=== PATIENT | male | born 1935 | race Caucasian/White ===

== ENCOUNTER 2018-10-04 18:12 | Inpatient (IN) | payer MEDICARE, OTHER ==
[~2018-10-04] VITALS: Ht 162.6 cm; Wt 62.8 kg
[2018-10-04] MEDS ORDERED: IPRATROPIUM NEB FS 0.5 MG/2.5 ML AMPUL.NEB ONE (18:23)
[2018-10-04] MEDS ORDERED: ALBUTEROL FS 2.5 MG/3 ML VIAL.NEB ONE (18:23)
[2018-10-04] MEDS ORDERED: CEFTRIAXONE 1GM BAG (ER ONLY) 50 ML IV ONE ×2 (18:24→18:30)
[2018-10-04] MEDS ORDERED: methylPREDNISolone SOD SUCC 125 MG/2ML VIAL ONE (18:24)
[2018-10-04] MEDS ORDERED: BENZ-13 PO (18:26)
[2018-10-04] MEDS ORDERED: ALBU2.5V38 IH (18:26)
[2018-10-04] MEDS ORDERED: FURO-145 PO (18:26)
[2018-10-04] MEDS ORDERED: MONT10TA22 PO (18:26)
[2018-10-04] MEDS ORDERED: ATOR10TA PO (18:26)
[2018-10-04] MEDS ORDERED: AMIN30LI2 PO (18:26)
[2018-10-04] MEDS ORDERED: BENZ1LOZ58 MM (18:26)
[2018-10-04] MEDS ORDERED: ASPI-1169 PO (18:26)
[2018-10-04] MEDS ORDERED: FAMO20TA8 PO (18:26)
[2018-10-04] MEDS ORDERED: DOCU-141 PO (18:26)
[2018-10-04] MEDS ORDERED: ACET-868 PO (18:26)
[2018-10-04] MEDS ORDERED: ENOX40DI9 SQ (18:26)
[2018-10-04] MEDS ORDERED: PANT40TA2 PO (18:26)
[2018-10-04] MEDS ORDERED: IPRA3AMP23 IH (18:26)
[2018-10-04 18:28] LABS: BASOPHILS # (AUTO) 0.1 /CMM (0.0-0.2); BASOPHILS % (AUTO) 0.8 % (0.0-2.0); EOSINOPHILS % (AUTO) 2.6 % (0.0-6.0); HEMATOCRIT 43 % (39-51); HEMOGLOBIN 14.5 g/dL (13.5-17.5); LYMPHOCYTES # (AUTO) 1.6 /CMM (0.8-4.8); LYMPHOCYTES % (AUTO) 24.4 % (20.0-44.0); MEAN CORPUSCULAR HGB CONC 34 g/dl (31.0-36.0); MEAN CORPUSCULAR VOLUME 90 fL (80-96); MONOCYTES # (AUTO) 0.7 /CMM (0.1-1.30); MONOCYTES % (AUTO) 10.6 % (2.0-12.0); NEUTROPHILS # (AUTO) 3.9 /CMM (1.8-8.9); NEUTROPHILS % (AUTO) 61.6 % (43.0-81.0); PLATELET COUNT (AUTO) 164 /CMM (150-450); RED BLOOD CELL COUNT(AUTO) 4.82 MIL/uL (4.5-6.0); WHITE BLOOD COUNT (AUTO) 6.4 K/uL (4.3-11.0)
[2018-10-04] MEDS ORDERED: IPRATROPIUM NEB FS 0.5 MG/2.5 ML AMPUL.NEB NEB ONE (18:30)
[2018-10-04] MEDS ORDERED: AZITHROMYCIN 500 MG in IV D5W 250 ML IV ONE (18:30)
[2018-10-04] MEDS ORDERED: methylPREDNISolone SOD SUCC 125 MG/2ML VIAL IV ONE (18:30)
[2018-10-04] MEDS ORDERED: IV NS 0.9% 1,000 ML BAG IV ONE (18:30)
[2018-10-04] MEDS ORDERED: VANCOMYCIN 1 GM in IV D5W 250 ML IV ONE (18:30)
[2018-10-04] MEDS ORDERED: ALBUTEROL FS 2.5 MG/3 ML VIAL.NEB CONTNEB ONE (18:30)
--- NOTE | 2018-10-04 18:33 | NUR ---
BIB RA 90 FROM [facility] SOB WITH WHEEZING O2 SATS R/A 70% ARRIVED WITH ALBUTEROL TREATMENT. PT AAOX3, PLACED ON BIPAP PER DR. MCGOWAN'S ORDER, PT LUCILA WELL. DENIES CP, DIZZINESS, N/V @ THIS TIME. PLACED ON DYE JIG OPERATOR. PT SEEN & EVAL'D BY DR. MCGOWAN & WILL CONT TO MONITOR.
[2018-10-04 18:40] LABS: CALCIUM, SERUM 8.6 mg/dL (8.5-10.1); CARBON DIOXIDE 34 mmol/L (21-32); CHLORIDE 99 mmol/L (98-107); CREATININE 1.1 mg/dL (0.6-1.3); GLUCOSE 112 mg/dL (74-106); POTASSIUM 3.2 mmol/L (3.5-5.1); SODIUM SERUM 139 mmol/L (136-145); UREA NITROGEN, BLOOD 17 mg/dL (7-18)
[2018-10-04 18:54] LABS: B-TYPE NATRIURETIC PEPTIDE 343 PG/ML (0-125)
[2018-10-04] MEDS ORDERED: ASPIRIN 325 MG TABLET PO ONE (19:00)
[2018-10-04] MEDS ORDERED: ASPIRIN 325 MG TABLET ONE (19:06)
--- NOTE | 2018-10-04 19:09 | NUR ---
IV VANCO STARTED, PT LUCILA WELL. INFUSING WELL, NO S/S OF SWELLING/REDNESS/INFILTRATION NOTED @ THIS TIME. RT @ BS FOR ABG.
[2018-10-04 19:14] LABS: ABG BASE EXCESS -18.1 mmol/L; ABG OXYGEN SATURATION 79.1 % (92.0-98.5); ABG PCO2 14.9 mmHg (35.0-45.0); ABG PH 7.299 (7.350-7.450); ABG PO2 48.4 mmHg (75.0-100.0); AaDO2 291.3 mmHg; COHb 0.3 % (0.5-1.5); MetHb 2.5 % (0.0-1.5); O2Hb 76.9 % (94.0-97.0); PEEP,BG 5 cm H2O; SITE, ABG Right Radial; VENT MODE, BG BIPAP
--- NOTE | 2018-10-04 19:37 | NUR ---
PT SITTING UP, EYES CLOSED BUT EASILY AWAKEN BY VERBAL STIMULI. PT STS HE'S FEELING A LOT BETTER, ON BIPAP O2 SAT 99%, NO RESP DISTRESS NOTED @ THIS TIME. PT ON TELE, NO ECTOPY NOTED. DENIES CP, DIZZINESS, N/V @ THIS TIME & WILL CONT TO MONITOR.
--- NOTE | 2018-10-04 19:58 | NUR ---
CALLED [employer] FELT HAT STEAMER WAS PAGED.
[2018-10-04] MEDS ORDERED: IV NS 0.9% 250 ML IV ONE (20:20)
[2018-10-04] MEDS ORDERED: CT SWABBABLE VALVE TRANS SET 1 EA INFUS.SET MC ONE (20:20)
[2018-10-04] MEDS ORDERED: IOHEXOL-350 100 ML VIAL IV ONE (20:20)
[2018-10-04] MEDS ORDERED: MAG HYDROX/AL HYDROX/SIMETH 30 ML UDC PO PRN (20:30)
[2018-10-04] MEDS ORDERED: Z GUARD REMEDY 2 OZ OINT TP PRN (20:30)
[2018-10-04] MEDS: ALBUTEROL FS 2.5 MG/0.5 ML VIAL.NEB NEB SCH ×2 (20:30→23:26)
[2018-10-04] MEDS ORDERED: HYDROCODONE/APAP 5/325MG 1 EACH TABLET PO PRN (20:30)
[2018-10-04] MEDS ORDERED: ZOLPIDEM TARTRATE 5 MG TABLET PO PRN (20:30)
[2018-10-04] MEDS: IPRATROPIUM NEB FS 0.5 MG/2.5 ML AMPUL.NEB NEB SCH ×2 (20:30→23:26)
[2018-10-04] MEDS ORDERED: ONDANSETRON HCL/PF 4 MG/2 ML VIAL IVP PRN (20:30)
[2018-10-04] MEDS ORDERED: MAGNESIUM HYDROXIDE 30 ML UDC PO PRN (20:30)
[2018-10-04] MEDS ORDERED: ACETAMINOPHEN 325 MG TABLET PO PRN (20:30)
--- NOTE | 2018-10-04 21:23 | NUR ---
PT BACK FROM CT VIA [facility] JUAN FOR CT ANGIO. PT STABLE NO RESP DISTRESS NOTED @ THIS TIME.
--- NOTE | 2018-10-04 21:33 | NUR ---
PT RECEIVED ON BIPAP WITH THE FOLLOWING SETTINGS OF: I/E 15/5 RATE 12 FIO2 50%, AND ABG DRAWN. PER MD MCGOWAN VERBAL ORDER INCREASE FIO2 100%. PT AWAKE, ALERT, AND TOLERATING SETTINGS. SKIN BARRIER APPLIED ACROSS BRIDGE OF NOSE. VIOLETA BROWN AWARE Addendum: 10/04/18 at 2137 by CRISTINA PAVON RT Amended: Links added.
--- NOTE | 2018-10-04 21:41 | NUR ---
RECEIVED REPORT FROM KEVIN STRATTON RN FOR CONTINUITY OF CARE. AWAITING PT ARRIVAL.
--- NOTE | 2018-10-04 21:41 | NUR ---
REPORT GIVEN TO MICHELLE RN @ ICU FOR CONT OF CARE.
[2018-10-04 22:01] LABS: ABG BASE EXCESS 1.3 mmol/L; ABG OXYGEN SATURATION 99.3 % (92.0-98.5); ABG PO2 528.8 mmHg (75.0-100.0); AaDO2 139.2 mmHg; COHb 0.2 % (0.5-1.5); MetHb 0.7 % (0.0-1.5); O2Hb 98.4 % (94.0-97.0); PEEP,BG 5 cm H2O; SITE, ABG Right Radial; VENT MODE, BG BIPAP
--- NOTE | 2018-10-04 22:05 | NUR ---
RECEIVED PT IN NO ACUTE DISTRESS IN BED. PT IS A/O X 3 AND ABLE TO MAKE NEEDS KNOWN. PT IS SCOTTISH SPEAKING ONLY WITH NEED OF SCHOOL SPEECH THERAPIST. PT HAS PURSED BREATHING UPON FIRST IMPRESSIONS. PT IS ON 15LPM VIA NON REBREATHER WITH O2 SAT @ 98%. PT TRANSFERRED TO BED FROM [facility] AND TOLERATED WELL. PT PLACED ON BIPAP BY RT AT BEDSIDE. PT TOLERATING BIPAP WELL. PT NOT C/O ANY PAIN AT THIS TIME. PT HAS RIGHT HAND 20G, LEFT HAND 20G AND RIGHT AC 20G THAT ARE CLEAN DRY INTACT AND PATENT WITH SALINE FLUSH. BED IN LOW LOCK POSITION WITH RIALS UP X 2. ALL SAFETY MEASURES ENSURED AND CARRIED OUT. WILL CONTINUE TO MONITOR PT.
[2018-10-04 22:16] VITALS: BP 132/82
[2018-10-04] MEDS ORDERED: POTASSIUM CHLORIDE 20 MEQ TAB.PRT.SR PO ONE (22:30)
[2018-10-04] MEDS: MONTELUKAST SODIUM (10MG) 10 MG TABLET PO SCH (22:31)
[2018-10-04] MEDS: ATORVASTATIN 10 MG TABLET PO SCH (22:31)
[2018-10-04] MEDS: ENOXAPARIN SODIUM 40 MG/0.4 ML DISP.SYRIN SQ SCH (22:32)
--- NOTE | 2018-10-04 22:50 | NUR ---
PT TRANSFERRED TO ICU AND PLACED BACK ON BIPAP DECREASED FIO2 60% AND PLACED ON PREVIOUS SETTINGS, VIOLETA HOLT. TX 20:30 WAS NOT GIVEN BECAUSE PATIENT WAS STILL ON CONT. TX THAT WAS ORDERED IN ER. WILL CONTINUE TX FOLLOWED AT 23:30
[2018-10-04 23:00] VITALS: BP 126/68
[2018-10-05] VITALS (31 sets, daily range): BP systolic 73–131; BP diastolic 35–102
[2018-10-05] MEDS: IPRATROPIUM NEB FS 0.5 MG/2.5 ML AMPUL.NEB NEB SCH ×6 (04:07→23:11)
[2018-10-05] MEDS: ALBUTEROL FS 2.5 MG/0.5 ML VIAL.NEB NEB SCH ×6 (04:08→23:11)
[2018-10-05 04:50] LABS: BASOPHILS % (AUTO) 0.1 % (0.0-2.0); EOSINOPHILS % (AUTO) 0.1 % (0.0-6.0); HEMATOCRIT 37 % (39-51); HEMOGLOBIN 12.4 g/dL (13.5-17.5); LYMPHOCYTES # (AUTO) 0.5 /CMM (0.8-4.8); LYMPHOCYTES % (AUTO) 10.4 % (20.0-44.0); MEAN CORPUSCULAR HGB CONC 33 g/dl (31.0-36.0); MEAN CORPUSCULAR VOLUME 89 fL (80-96); MONOCYTES # (AUTO) 0.1 /CMM (0.1-1.30); MONOCYTES % (AUTO) 2.4 % (2.0-12.0); NEUTROPHILS # (AUTO) 3.9 /CMM (1.8-8.9); PLATELET COUNT (AUTO) 167 /CMM (150-450); WHITE BLOOD COUNT (AUTO) 4.5 K/uL (4.3-11.0)
[2018-10-05 05:23] LABS: ALANINE AMINOTRANSFERASE 36 U/L (12-78); ALBUMIN 2.7 g/dL (3.4-5.0); ALKALINE PHOSPHATASE 87 U/L (46-116); ASPARTATE AMINOTRANSFERASE 22 U/L (15-37); BILIRUBIN,TOTAL 0.3 mg/dL (0.2-1.0); CALCIUM, SERUM 8.6 mg/dL (8.5-10.1); CARBON DIOXIDE 31 mmol/L (21-32); CHLORIDE 101 mmol/L (98-107); CREATININE 1.3 mg/dL (0.6-1.3); GLUCOSE 161 mg/dL (74-106); MAGNESIUM 1.6 mg/dL (1.8-2.4); SODIUM SERUM 141 mmol/L (136-145); TOTAL PROTEIN, SERUM 6.3 g/dL (6.4-8.2); UREA NITROGEN, BLOOD 15 mg/dL (7-18)
[2018-10-05 05:27] LABS: CHOLESTEROL 147 mg/dL (<200); HDL CHOLESTEROL 47 mg/dL (40-60); LDL 88 mg/dL (0-99); TRIGLYCERIDES 56 mg/dL (30-150)
--- NOTE | 2018-10-05 06:56 | NUR ---
PT REMAINS IN NO ACUTE DISTRESS IN BED. ALL NEEDS MET, ALL ORDERS CARRIED OUT. WILL ENDORSE CARE TO AM RN FOR CONTINUITY OF CARE.
--- NOTE | 2018-10-05 07:41 | NUR ---
INITIAL SENIOR STAFF CONSULTANT NOTE RCVD PT AWAKE AND ALERT, SINHALA SPEAKING, SHOWING NO S/O DISTRESS/PAIN. ST ON MONITOR. TOLERATING O2 VIA NC. IV SITES C/D/I/PATENT NO S/O INFILTRATION/PHLEBITIS OBSERVED UPON FLUSHING. WILL CONTINUE TO MONITOR PT FOR SAFETY AND COMFORT. BED IN LOW AND LOCKED POSITION. CALL LIGHT WITHIN REACH.
[2018-10-05] MEDS: methylPREDNISolone SOD SUCC 40 MG/ML VIAL IV SCH ×3 (08:03→16:51)
[2018-10-05] MEDS: ASPIRIN 81 MG TAB.CHEW PO SCH (08:03)
[2018-10-05] MEDS ORDERED: FUROSEMIDE 20 MG TABLET PO SCH (09:00)
[2018-10-05 09:33] LABS: ABG BASE EXCESS 2.2 mmol/L; ABG OXYGEN SATURATION 90.3 % (92.0-98.5); ABG PCO2 45.5 mmHg (35.0-45.0); ABG PH 7.399 (7.350-7.450); ABG PO2 59.6 mmHg (75.0-100.0); AaDO2 57.4 mmHg; COHb 0.4 % (0.5-1.5); MetHb 0.7 % (0.0-1.5); O2Hb 89.3 % (94.0-97.0); SITE, ABG Right Radial; VENT MODE, BG 2 L NC
[2018-10-05] MEDS: Magnesium 1GM/D5W 100ML PREMIX 100 ML IV SCH ×2 (10:49→12:29)
--- NOTE | 2018-10-05 10:57 | NUR ---
LIFTER DRIVER NOTE PT'S CARE ENDORSED TO VIOLETA DAMON FOR CONTINUITY OF CARE. PT SITTING AT EDGE OF BED SHOWING NO S/O DISTRESS/PAIN AT THIS TIME. BED IN LOW AND LOCKED POSITION. CALL LIGHT WITHIN REACH.
[2018-10-05] MEDS ORDERED: POLYETHYLENE GLYCOL 3350 17 GM POWD.PACK PO PRN (11:00)
--- NOTE | 2018-10-05 11:00 | NUR ---
YARN MERCERIZER OPERATOR NOTE RECEIVED PT AWAKE AND ALERT, BURUNDIAN SPEAKING, SITTING AT EDGE IF BED, NO S/O DISTRESS/PAIN. ST ON MONITOR. TOLERATING O2 AT 2 LPM VIA NC. IV SITES LEFT HAND G 20 AND RT AC G 20, BOTH FLUSHES WELL, SITES CLEAR, USES URINAL, WILL CONTINUE TO MONITOR PT FOR SAFETY AND COMFORT. BED IN LOW AND LOCKED POSITION. CALL LIGHT WITHIN REACH.
--- NOTE | 2018-10-05 18:32 | NUR ---
TEACHING SPECIALISTS CLOSING NOTES PT RESTING IN BED, AWAKE AND ALERT, HUNGARIAN SPEAKING, NO S/O DISTRESS/PAIN. ST ON MONITOR. TOLERATING O2 AT 2 LPM VIA NC. IV SITES LEFT HAND G 20 AND RT AC G 20, BOTH FLUSHES WELL, SITES CLEAR, USES URINAL, 1020 ML TOTAL URINE OUTPUT, PM CARE DONE, ALL NEEDS MET, NO OTHER SIGNIFICANT CHANGE IN CONDITION, WILL ENDORSE TO NEXT SHIFT FOR BOUBACAR. BED IN LOW AND LOCKED POSITION. CALL LIGHT WITHIN REACH.
--- NOTE | 2018-10-05 19:31 | NUR ---
Patient speaks Syriac only,he resides at [facility] [phone]. Requires assistance with adl's. Current dc plan is to return to [facility]. Addendum: 10/05/18 at 1932 by CHAI ANDUJAR RN Amended: Links added.
--- NOTE | 2018-10-05 19:45 | NUR ---
ICU/DISH CARRIER RECEIVED REPORT FROM DAY NURSE. SEE FLOWSHEET FOR ASSESSMENT, THERE IS NO SKIN ISSUES THAT ARE ADDRESSED. CALL LIGHT WITHIN REACH. NO ACUTE DISTRESS SEEN AT THIS TIME. PT IS TO INDEPENDENTLY TURN SELF AND REQUIRES MINIMAL ASST WITH ADL'S .
[2018-10-05] MEDS: MONTELUKAST SODIUM (10MG) 10 MG TABLET PO SCH (20:58)
[2018-10-05] MEDS: ATORVASTATIN 10 MG TABLET PO SCH (20:58)
[2018-10-05] MEDS: SENNOSIDES 8.6 MG TABLET PO SCH (21:00)
[2018-10-05] MEDS: ENOXAPARIN SODIUM 40 MG/0.4 ML DISP.SYRIN SQ SCH (21:02)
--- NOTE | 2018-10-05 21:20 | NUR ---
ICU/BANDER PT ASSISTED TO SIDE OF BED, WHERE PT SAT FOR ABOUT 30 MINUTES DUE TO HAVING SOME DIFFICULTY BREATHING AND WAS COUGHING. THEN ASST BACK TO BED AFTER PT VOIDED. PT HAS HISTORY OF SMOKING AND COPD.
--- NOTE | 2018-10-05 23:39 | NUR ---
ICU/WILDLIFE PHOTOGRAPHER PT COMPLAINED ABOUT PAIN, TO BACK WHICH WAS RATED 7/10. NORCO 1 TAB GIVEN FOR THIS. WILL CONTINUE TO MONITOR THIS PT. NO ACUTE DISTRESS SEEN AT THIS TIME. CALL LIGHT WITHIN REACH.
[2018-10-06] VITALS (16 sets, daily range): BP systolic 91–158; BP diastolic 43–80
--- NOTE | 2018-10-06 01:08 | NUR ---
ICU/MECHANICAL TECHNICAL SERVICE SPECIALIST PT APPEARS TO BE RESTING COMFORTABLE, CURRENTLY NO COMPLAINTS OF PAIN. NO ACUTE DISTRESS CAN BE SEEN AT THIS TIME. CALL LIGHT WITHIN REACH.
--- NOTE | 2018-10-06 02:10 | NUR ---
ICU/MOTION PICTURE CAMERA OPERATOR PT ASSISTED TO SIDE OF BED, WHERE PT SAT FOR ABOUT 30-45 MINUTES DUE TO HAVING SOME DIFFICULTY BREATHING. THEN ASST BACK TO BED. PT HAS HISTORY OF SMOKING AND COPD.
[2018-10-06] MEDS: IPRATROPIUM NEB FS 0.5 MG/2.5 ML AMPUL.NEB NEB SCH ×6 (03:08→23:46)
[2018-10-06] MEDS: ALBUTEROL FS 2.5 MG/0.5 ML VIAL.NEB NEB SCH ×6 (03:08→23:46)
[2018-10-06 05:05] LABS: HEMATOCRIT 32 % (39-51); HEMOGLOBIN 11.1 g/dL (13.5-17.5); LYMPHOCYTES # (AUTO) 0.9 /CMM (0.8-4.8); LYMPHOCYTES % (AUTO) 10.9 % (20.0-44.0); MEAN CORPUSCULAR HGB CONC 34 g/dl (31.0-36.0); MEAN CORPUSCULAR VOLUME 88 fL (80-96); MONOCYTES # (AUTO) 0.5 /CMM (0.1-1.30); MONOCYTES % (AUTO) 6.6 % (2.0-12.0); NEUTROPHILS # (AUTO) 6.6 /CMM (1.8-8.9); NEUTROPHILS % (AUTO) 82.5 % (43.0-81.0); PLATELET COUNT (AUTO) 171 /CMM (150-450); RED BLOOD CELL COUNT(AUTO) 3.66 MIL/uL (4.5-6.0)
[2018-10-06 05:17] LABS: CALCIUM, SERUM 8.4 mg/dL (8.5-10.1); CARBON DIOXIDE 32 mmol/L (21-32); CHLORIDE 100 mmol/L (98-107); GLUCOSE 132 mg/dL (74-106); PHOSPHORUS 3.1 mg/dL (2.5-4.9); POTASSIUM 3.7 mmol/L (3.5-5.1); SODIUM SERUM 138 mmol/L (136-145); UREA NITROGEN, BLOOD 19 mg/dL (7-18)
[2018-10-06] MEDS: BENZONATATE 100 MG CAPSULE PO PRN ×2 (06:22→21:16)
--- NOTE | 2018-10-06 06:24 | NUR ---
ICU/DRAWER UPFITTER PT WAS GIVEN PRN TESSALON PERLE X1 PO FOR COUGH. WILL CONTINUE TO MONITOR THIS PT. CALL LIGHT WITHIN REACH. PT IS SITTING ON THE SIDE OF THE BED.
--- NOTE | 2018-10-06 07:10 | NUR ---
RN INITIAL NOTES: Rec'd pt awake on bed, A/O x 3, Kyrgyz speaking only, noted pursed lip breathing, sating at 95%. On telemonitor SR 88bpm. Has 2 IV line access both patent & intact w/ no s/sx of infection/infiltration noted. Bed kept low & in locked pos. Call light placed w/in reach. Will continue to monitor & attend pt needs.
[2018-10-06] MEDS: POLYETHYLENE GLYCOL 3350 17 GM POWD.PACK PO SCH (08:09)
[2018-10-06] MEDS: ASPIRIN 81 MG TAB.CHEW PO SCH (08:09)
[2018-10-06] MEDS: methylPREDNISolone SOD SUCC 40 MG/ML VIAL IV SCH ×3 (08:09→17:06)
--- NOTE | 2018-10-06 08:30 | NUR ---
Pt seen & examined by Dr. Roberts w/ orders made & carried out.
--- NOTE | 2018-10-06 10:30 | NUR ---
RF MICROWAVE ENGINEER NOTES: Pt transferred to [facility] 312/A as ordered. Pt still noted w/ non productive cough, SOB upon exertion but sating >92% while on NC at 2lpm. IV line access kept patent & intact, R AC G20 & L Hand G20, both SL. Pt had BM using BSC before transfer. Valuables (CP & deliverer food) sent w/ pt. Family came prior to transfer. Pt left ICU via wheelchair. No concerns /issues identified during transfer. Report given to Simone MCDANIEL for BOUBACAR.
--- NOTE | 2018-10-06 10:41 | NUR ---
MS RECEIVING DOCK CHECKER NOTES RECEIVED PT FROM ICU NURSE IN STABLE CONDITION. PT IS A/O X3. NO SOB OR SIGNS OF SCUTE DISTRESS NOTED. PURSED LIP BREATHING NOTED. PT ON 2L VIA NC AND SATING WELL AT 93%. IVS TO RIGHT AC AND LEFT HAND NOTED TO BE PATENT AND INTACT. NO REDNESS OR SIGNS OF INFILTRATION NOTED. PT ORIENTED TO ROOM AND USE OF CALL LIGHT. BED IN LOW LOCKED POSITION, SIDE RAILS UP X2, CALL LIGHT WITHIN REACH. PT'S FAMILY AT BEDSIDE. WILL CONTINUE TO MONITOR
--- NOTE | 2018-10-06 18:53 | NUR ---
MS RN CLOSING NOTES PT REMAINS STABLE. ALL NEEDS ANTICIPATED FOR AND MET DURING SHIFT. ALL DUE MEDS GIVEN. PRN CARE RENDERED. IV REMAINS PATENT AND INTACT. VITALS REMAIN STABLE. PT REMAINS ON 2L VIA NC AND SATING WELL. NO SOB NOTED THROUGHOUT SHIFT. SAFETY MEASURES REMAIN IN PLACE. WILL ENDORSE TO NIGHTSHIFT RN FOR BOUBACAR
--- NOTE | 2018-10-06 19:20 | NUR ---
RN NOTES RECEIVED PT IN BED, IN NO ACUTE DISTRESS, NOTED WITH PURSED LIP BREATHING WHICH IS PATIENT'S BASELINE WITH O2 SAT 95% RECEIVING 02 VIA NC 2LPM. PT IS ALERT AND ORIENTED X 3, VERBALLY RESPONSIVE AND DENIES PAIN/DIZZINESS AT THIS TIME. ALL NEEDS ATTENDED TO, PLACED CALL LIGHT WITHIN EASY REACH. BED IN LOW POSITION AND LOCKED IN PLACE. WILL CONTINUE TO MONITOR PT.
[2018-10-06] MEDS: ENOXAPARIN SODIUM 40 MG/0.4 ML DISP.SYRIN SQ SCH (21:15)
[2018-10-06] MEDS: ATORVASTATIN 10 MG TABLET PO SCH (21:16)
[2018-10-06] MEDS: SENNOSIDES 8.6 MG TABLET PO SCH (21:16)
[2018-10-06] MEDS: MONTELUKAST SODIUM (10MG) 10 MG TABLET PO SCH (21:16)
[2018-10-07] MEDS: ALBUTEROL FS 2.5 MG/0.5 ML VIAL.NEB NEB SCH ×6 (04:00→23:44)
[2018-10-07] MEDS: IPRATROPIUM NEB FS 0.5 MG/2.5 ML AMPUL.NEB NEB SCH ×6 (04:01→23:44)
[2018-10-07 06:16] LABS: BASOPHILS % (AUTO) 0.1 % (0.0-2.0); HEMATOCRIT 37 % (39-51); HEMOGLOBIN 12.2 g/dL (13.5-17.5); LYMPHOCYTES # (AUTO) 0.9 /CMM (0.8-4.8); LYMPHOCYTES % (AUTO) 10.2 % (20.0-44.0); MEAN CORPUSCULAR HGB CONC 33 g/dl (31.0-36.0); MEAN CORPUSCULAR VOLUME 89 fL (80-96); MONOCYTES # (AUTO) 0.5 /CMM (0.1-1.30); MONOCYTES % (AUTO) 6.2 % (2.0-12.0); NEUTROPHILS # (AUTO) 7.2 /CMM (1.8-8.9); NEUTROPHILS % (AUTO) 83.5 % (43.0-81.0); PLATELET COUNT (AUTO) 213 /CMM (150-450); RED BLOOD CELL COUNT(AUTO) 4.11 MIL/uL (4.5-6.0); WHITE BLOOD COUNT (AUTO) 8.6 K/uL (4.3-11.0)
[2018-10-07 06:30] LABS: CARBON DIOXIDE 32 mmol/L (21-32); CHLORIDE 101 mmol/L (98-107); CREATININE 0.9 mg/dL (0.6-1.3); GLUCOSE 117 mg/dL (74-106); POTASSIUM 4.1 mmol/L (3.5-5.1); SODIUM SERUM 138 mmol/L (136-145); UREA NITROGEN, BLOOD 16 mg/dL (7-18)
--- NOTE | 2018-10-07 07:35 | NUR ---
MS RN OPENING NOTE RECEIVED PT IN BED SLEEPING AND EASILY AROUSABLE. PT IS ALERT AND ORIENTED X4 AND PRIMARILY DIVEHI SPEAKING. NO ACUTE DISTRESS NOTED AT THIS TIME, BREATHING IS EVEN AND UNLABORED ON 2L NC. L HAND #20G AND R AC #20G IVS ARE SALINE LOCKED WITHOUT REDNESS OR SWELLING. ALL NEEDS ATTENDED TO, BED IS LOCKED AND IN LOWEST POSITION, SIDE RAILS UP X2, BED ALARM ON, CALL LIGHT WITHIN REACH.
[2018-10-07 08:00] VITALS: BP 112/65
[2018-10-07] MEDS: POLYETHYLENE GLYCOL 3350 17 GM POWD.PACK PO SCH (08:48)
[2018-10-07] MEDS: ASPIRIN 81 MG TAB.CHEW PO SCH (08:48)
[2018-10-07] MEDS: methylPREDNISolone SOD SUCC 40 MG/ML VIAL IV SCH ×3 (08:48→16:17)
--- NOTE | 2018-10-07 11:29 | NUR ---
MS RN D/C PLANNING SPOKE WITH PT AND SON ANGEL AT THE BEDSIDE UTILIZATION ANA M FOR MALIAN TRANSLATION. PER SON AND PT, THEY ARE AGREEABLE TO THE PT BEING D/C TO A SNF, PREFERABLY [facility], HOWEVER PER THE PT AND SON THEY DO NOT WANT THE PT TO GO BACK TO [facility]. INFORMED KELTON IN CASE MANAGEMENT AND PROVIDED CONTACT INFORMATION FOR ANGEL ([phone]).
[2018-10-07 12:09] LABS: ABG BASE EXCESS 5.2 mmol/L; ABG OXYGEN SATURATION 93.5 % (92.0-98.5); ABG PCO2 48.3 mmHg (35.0-45.0); ABG PH 7.421 (7.350-7.450); ABG PO2 67.2 mmHg (75.0-100.0); AaDO2 75.4 mmHg; COHb 0.5 % (0.5-1.5); MetHb 0.4 % (0.0-1.5); O2Hb 92.7 % (94.0-97.0); SITE, ABG Left Brachial
--- NOTE | 2018-10-07 13:00 | NUR ---
MS MCDANIEL D/C IF L HAND IV FOUND TO BE LEAKING AND PAINFUL WHEN FLUSHED. IV D/C WITH CATHETER TIP IN TACT. R AC #20G IV IS PATENT, CLEAN, DRY AND INTACT. Addendum: 10/07/18 at 1828 by DAVID LOPEZ RN D/C IV
[2018-10-07 16:00] VITALS: BP 135/70
--- NOTE | 2018-10-07 18:26 | NUR ---
MS RN CLOSING NOTE PT SITTING AT THE EDGE OF BED AND TALKING WITH FAMILY. PT IS ALERT AND ORIENTED X4 AND PRIMARILY MALAY SPEAKING. NO ACUTE DISTRESS NOTED AT THIS TIME, PT HAS PURSED LIP BREATHING ON 2L NC WHICH IS PT BASELINE AND MD AWARE. R AC #20G IV IS SALINE LOCKED WITHOUT REDNESS OR SWELLING. ALL NEEDS ATTENDED TO, BED IS LOCKED AND IN LOWEST POSITION, SIDE RAILS UP X2, BED ALARM ON, CALL LIGHT WITHIN REACH. WILL ENDORSE TO CROWN POUNCER RN FOR CONTINUITY OF CARE.
--- NOTE | 2018-10-07 19:20 | NUR ---
RN NOTES RECEIVED PT SITTING UP IN BED, RECEIVING A BREATHING TREATMENT, PT WITH NO C/O PAIN, AND IN NO ACUTE DISTRESS AT THIS TIME. PT ALERT AND ORIENTED X 3, IN NO ACUTE DISTRESS. FAMILY AT BEDSIDE. PLACED CALL LIGHT WITHIN EASY REACH. WILL CONTINUE TO MONITOR PT.
[2018-10-07 20:00] VITALS: BP 147/70
[2018-10-07] MEDS: MONTELUKAST SODIUM (10MG) 10 MG TABLET PO SCH (21:12)
[2018-10-07] MEDS: BENZONATATE 100 MG CAPSULE PO PRN (21:12)
[2018-10-07] MEDS: SENNOSIDES 8.6 MG TABLET PO SCH (21:12)
[2018-10-07] MEDS: ATORVASTATIN 10 MG TABLET PO SCH (21:12)
[2018-10-07] MEDS: ENOXAPARIN SODIUM 40 MG/0.4 ML DISP.SYRIN SQ SCH (21:14)
[2018-10-08] MEDS: IPRATROPIUM NEB FS 0.5 MG/2.5 ML AMPUL.NEB NEB SCH ×5 (03:49→19:33)
[2018-10-08] MEDS: ALBUTEROL FS 2.5 MG/0.5 ML VIAL.NEB NEB SCH ×5 (03:49→19:33)
--- NOTE | 2018-10-08 06:28 | NUR ---
RN NOTES RN CLOSING NOTES PT SLEPT WELL THROUGHOUT THE SHIFT, NO DISTRESS NOTED, AFEBRILE, VS STABLE. PT CONTINUES TO HAVE PURSED LIP BREATHING WHEN AWAKE, IN NO RESPIRATORY DISTRESS. O2 SAT WNL, RECEIVING O2 VIA NC @2LPM. ALL PATIENT'S NEEDS ATTENDED TO, KEPT SAFE AND DRY, CLEAN AND COMFORTABLE. WILL ENDORSE TO AM SHIFT NURSE FOR CONTINUITY OF CARE.
--- NOTE | 2018-10-08 07:41 | NUR ---
MS RN OPENING NOTE RECEIVED PT IN BED SLEEPING AND EASILY AROUSABLE. PT IS ALERT AND ORIENTED X4 AND PRIMARILY WOLOF SPEAKING. NO ACUTE DISTRESS NOTED AT THIS TIME, PT HAS PURSED LIP BREATHING ON 2L NC WHEN AWAKE. R AC #20G IV IS SALINE LOCKED WITHOUT REDNESS OR SWELLING. ALL NEEDS ATTENDED TO, BED IS LOCKED AND IN LOWEST POSITION, SIDE RAILS UP X2, BED ALARM ON, CALL LIGHT WITHIN REACH.
[2018-10-08 08:00] VITALS: BP 133/61
[2018-10-08] MEDS: methylPREDNISolone SOD SUCC 40 MG/ML VIAL IV SCH ×3 (08:42→17:06)
[2018-10-08] MEDS: ASPIRIN 81 MG TAB.CHEW PO SCH (08:43)
[2018-10-08] MEDS: POLYETHYLENE GLYCOL 3350 17 GM POWD.PACK PO SCH (08:43)
[2018-10-08] MEDS: BENZONATATE 100 MG CAPSULE PO PRN (08:45)
--- NOTE | 2018-10-08 11:04 | NUR ---
MS RN NOTE INFORMED DR. BUSTOS THAT "PATIENT IS READY FOR TRANSFER TO [facility] TODAY" ORDERED BY DR. REA. DR. BUSTOS STATED HE WILL FOLLOW UP.
[2018-10-08] MEDS ORDERED: PRED20TA PO (13:15)
[2018-10-08 16:00] VITALS: BP 153/83
--- NOTE | 2018-10-08 18:49 | NUR ---
MS RN AMBULANCE YSABEL, SHEET METAL LAYOUT WORKER TO FOLLOW UP REGARDING CONTROL SYSTEMS SPECIALIST TIME. PT WAS SUPPOSE TO BE PICKED UP AT 1830.
--- NOTE | 2018-10-08 19:23 | NUR ---
MS RN PT DISCHARGED PT DISCHARGED TO [facility] IN MEDICALLY STABLE CONDITION. REPORT GIVEN TO VIOLETA JOHNSON FOR TRANSFER OF CARE. DISCHARGE PAPERWORK AND EDUCATION PROVIDED PER [employer]. MELANY ORTIZ AWARE OF PT DISCHARGE AND TRANSFER, PROVIDED CONTACT INFORMATION TO ALEX. PT IS ALERT AND ORIENTED X4, PRIMARILY BAHRAINI SPEAKING. PT BASELINE IS PURSED LIP BREATHING WITH ACCESSORY MUSCLE USE ON 2L NC WHILE AWAKE. BREATHING IS EVEN AND UNLABORED ON 2 LNC WHILE ASLEEP. DENIES N/V, CHEST PAIN, SOB. R AC PERIPHERAL IV REMOVED WITH CATHETER TIP INTACT. ALL BELONGINGS ACCOUNTED FOR AND BELONGINGS LIST SIGNED AND PLACED IN CHART. REPORT GIVEN TO AMBULANCE STAFF FOR TRANSFER OF CARE.
== END 2018-10-08 19:20 | disposition short-term general hospital (02) | DRG 189 ==
LOC: ER 18:20 → ICU 20:12 → TELE 10-06 10:59 → MED 10-06 11:00
PROVIDERS: ADMIT Internal Medicine
PROC: 5A09357 Assistance with Respiratory Ventilation, Less than 24 Consecutive Hours, Continuous Positive Airway Pressure (ICD-10-PCS; principal; 2018-10-04)
DX: J96.01 Acute respiratory failure with hypoxia (principal); I21.A1 Myocardial infarction type 2; J44.1 Chronic obstructive pulmonary disease with (acute) exacerbation; D68.59 Other primary thrombophilia; I50.32 Chronic diastolic (congestive) heart failure; J98.11 Atelectasis; E78.5 Hyperlipidemia, unspecified; E87.6 Hypokalemia; E83.42 Hypomagnesemia; K21.9 Gastro-esophageal reflux disease without esophagitis; Z79.01 Long term (current) use of anticoagulants; E66.9 Obesity, unspecified; I48.91 Unspecified atrial fibrillation; Z87.01 Personal history of pneumonia (recurrent); Z87.891 Personal history of nicotine dependence; I11.0 Hypertensive heart disease with heart failure; G47.33 Obstructive sleep apnea (adult) (pediatric); R91.1 Solitary pulmonary nodule; Z68.23 Body mass index [BMI] 23.0-23.9, adult
CPT/HCPCS: 36415; 36600; 71045-TC; 80048-TC; 80053-TC; 80061-TC; 82803-TC; 83605-TC; 83735-TC; 83880; 84100-TC; 84484-TC; 85025-TC; 85730-TC; 87040-TC; 87070-TC; 87081-TC; 87186-TC; 87400; 94799-TC; G0378; J0456; J0696; J1650; J2920; J2930; J3370; J3475; J7030; J7050; J7060; Q9967